=== PATIENT | male | born 1960 | race Caucasian/White ===

== ENCOUNTER 2022-05-12 19:11 | Emergency (ER) | payer BC, SELFPAY ==
--- NOTE | ~2022-05-12 | XR_ITS ---
EXAMINATION: XR hand LT min 3V INDICATION: Left hand pain TECHNIQUE: Three views of the left hand are obtained. COMPARISON: None available FINDINGS: Bone alignment is normal. There is no fracture. There are tuft soft tissue lacerations of t he second and third fingers. There is moderate osteoarthritis at the first carpometacarpal joint and mild osteoarthritis of multiple interphalangeal joints. No radiopaque foreign body is identified. IMPRESSION: 1. Subtle soft tissue lacerations of the second and third fingers without underlying osseous abnormal ity. Reviewed, dictated and finalized at location F. IMPRESSION: 1. Subtle soft tissue lacerations of the second and third fingers without under lying osseous abnormality.
[2022-05-12 19:16] VITALS: BP 132/79; PULSE 69; RESP 16; TEMP 36.6; O2SAT 98
--- NOTE | 2022-05-12 20:36 | ED.WOUNDLAC ---
HPI - Wound/Laceration General Chief Complaint: Wound/Laceration <Zenobia Hoang PA-C - Last Filed: 05/13/22 01:10> Stated Complaint: Laceration left hand <MELISSA Quintanilla Last Filed: 05/13/22 01:10> Time Seen by Provider: 05/12/22 20:32 <MELISSA Quintanilla Last Filed: 05/13/22 01:10> Source: patient <MELISSA Quintanilla Last Filed: 05/13/22 01:10> Mode of arrival: ambulatory <Zenobia Hoang PA-C - Last Filed: 05/13/22 01:10> Limitations: no limitations <Zenobia Hoang PA-C - Last Filed: 05/13/22 01:10> History of Present Illness HPI narrative: Patient is a 61 y/o male who presents to the ED with c/o lacerations to his L 2nd and 3rd digits. Reports he was working with a circular saw today when his fingers got too close to the PVC board he was cutting. He sustained lacerations to the pads of his left second and third digits. No other injuries. Bleeding controlled by the time of my evaluation. Patient's tetanus status up-to-date. No numbness, tingling. <Zenobia Hoang PA-C - Last Filed: 05/13/22 01:10> Review of Systems Review of Systems: CONSTITUTIONAL: Denies fever, chills, or sweats. SKIN: Reports lacerations to L 2nd/3rd digits. MUSCULOSKELETAL: Denies joint pain. NEUROLOGIC: Denies tingling, numbness, or weakness. <Zenobia Hoang PA-C - Last Filed: 05/13/22 01:10> All systems reviewed & are unremarkable except as noted in HPI and below <Zenobia Hoang PA-C - Last Filed: 05/13/22 01:10> PMFSH Past Medical History Medical History: Medical History BPH (benign prostatic hyperplasia) HTN (hypertension) <Zenobia Hoang PA-C - Last Filed: 05/13/22 01:10> Surgical History Surgical History: Surgical History No pertinent past surgical history <Zenobia Hoang PA-C - Last Filed: 05/13/22 01:10> Social History Social History: Social History Smoking status: Never smoker Alcohol intake: current <Zenobia Hoang PA-C - Last Filed: 05/13/22 01:10> Exam Narrative: GENERAL: Well appearing, well-nourished, non-toxic, in no acute distress. HEAD: Normocephalic, atraumatic. NECK: Supple. No adenopathy, no masses. RESPIRATORY: Airway patent, respirations nonlabored. Clear to auscultation bilaterally, no rales, rhonchi, wheezing. CARDIOVASCULAR: Regular rate and rhythm without murmurs, rubs, or gallops. Radial pulses 2+ and equal bilaterally. MUSCULOSKELETAL: Moves all extremities. Strength/ROM intact without gross deformities. Sensation intact. Full ROM of L fingers. SKIN: Warm, dry, normal color. No rashes. 1cm linear laceration to L 2nd digit finger pad. Several small lacerations to L 3rd digit finger pad with skin in middle of lacerations somewhat mangled and jagged. No active bleeding. NEURO: A&O X3. Speech clear. Cranial nerves II-XII grossly intact. Steady gait. No ataxic movements. PSYCHIATRIC: Appropriate mood and affect. Normal interaction. <Zenobia Hoang PA-C - Last Filed: 05/13/22 01:10> Course INTENSIVE CARE AMBULANCE PARAMEDIC/PA Physician Supervision For this patient encounter, I reviewed the INTENSIVE CARE AMBULANCE PARAMEDIC or PA documentation, treatment plan, and medical decision making. I was available for consultation as needed. <Radha Shankar MD - Last Filed: 05/25/22 12:34> Vital Signs Vital signs: Vital Signs Temperature 97.8 F 05/12/22 19:16 Pulse Rate 69 05/12/22 19:16 Respiratory Rate 16 05/12/22 19:16 Blood Pressure 132/79 05/12/22 19:16 Pulse Oximetry 98 05/12/22 19:16 Oxygen Delivery Room Air 05/12/22 19:16 Temperature 97.8 F 05/12/22 19:16 Pulse Rate 78 05/12/22 23:24 Respiratory Rate 16 05/12/22 23:24 Blood Pressure 140/78 05/12/22 23:24 Pulse Oximetry 99 10/2
[2022-05-12] MEDS: LIDOCAINE HCL 1% PF 30 ML VIAL 5 ML INFILTRATE (21:39)
[2022-05-12 23:24] VITALS: BP 140/78; PULSE 78; RESP 16; O2SAT 99
== END 2022-05-12 23:25 | disposition home or self-care (01) ==
PROVIDERS: Emergency Provider Emergency Medicine; PCP Family Medicine Sports Medicine
DX: S61.211A Laceration without foreign body of left index finger without damage to nail, initial encounter (principal); S61.213A Laceration without foreign body of left middle finger without damage to nail, initial encounter; N40.0 Benign prostatic hyperplasia without lower urinary tract symptoms; I10 Essential (primary) hypertension; W31.2XXA Contact with powered woodworking and forming machines, initial encounter
CPT/HCPCS: 12002; 73130; 99283

== ENCOUNTER 2022-09-19 08:15 | Outpatient (CLI) | payer BC, SELFPAY ==
--- NOTE | 2022-09-19 08:23 | ECG_ITS ---
Measurements Intervals Elmer Rate: 49 P: 13 WA: 156 QRS: -28 QRSD: 96 T: -20 QT: 412 QTc: 375 Interpretive Statements SINUS BRADYCARDIA LEFT VENTRICULAR HYPERTROPHY BORDERLINE R WAVE PROGRESSION, ANTERIOR LEADS BORDERLINE ST-T WAVE ABNORMALITY- INFERIOR LEADS BASELINE ARTIFACT- I, II, AVR BORDERLINE ECG NO PREVIOUS ECG AVAILABLE FOR COMPARISON Electronically Signed On 09-19-2022 9:48:47 BURNISHING MACHINE OPERATOR by Owen Gill D.O.
== END 2022-09-19 08:16 | disposition home or self-care (01) ==
PROVIDERS: PCP Family Medicine Sports Medicine; Visit Provider Urology
DX: Z01.818 Encounter for other preprocedural examination (principal); I10 Essential (primary) hypertension; R94.31 Abnormal electrocardiogram [ECG] [EKG]
CPT/HCPCS: 93005

== ENCOUNTER 2022-09-26 14:30 | Observation (INO) | payer BC, SELFPAY ==
--- NOTE | 2022-09-18 08:03 | P.HP_ITS ---
H&P: HPI History of Present Illness Date/Time: 09/18/22 08:03 Chief Complaint: Difficulty urinating Narrative: pleasant 61-year-old with longstanding irritable and obstructive voiding symptoms into the, refractory to medical management with both alpha blockers and 5 alpha reductase inhibitors. He continues to complain of urinary frequency urgency with nocturia several times per night. He has a sense of hesitancy intermittency and incomplete emptying. Cystoscopy shows trilobar hyperplasia. After discussion of therapeutic options he has elected to proceed with TURP. He is aware the risk including, but not limited to, adverse cardiopulmonary events, hematuria, ongoing voiding symptoms. Review of Systems Review of Systems: All systems reviewed & are unremarkable except as noted in HPI and below PMFSH Past Medical History Medical History BPH (benign prostatic hyperplasia) HTN (hypertension) Surgical History Surgical History No pertinent past surgical history Social History Social History Smoking status: Never smoker Alcohol intake: current Exam Const: General: no acute distress Resp: Effort & Inspection: normal respiratory effort GI: Inspection: non-distended GI Palp: No abdominal tenderness and No Guarding due to palpation present (GI) Auscultation: normal bowel sounds Assessment and Plan Assessment and plan (1) BPH loc w urin obs/LUTS: Code(s): N40.1 - Benign prostatic hyperplasia with lower urinary tract symptoms Status: Acute Assessment and Plan: * TURP
[2022-09-18 13:31] VITALS: BMI 33.4
--- NOTE | 2022-09-18 13:50 | PC.NURSE ---
Report to the Outpatient Waiting Room, entrance under the green pavilion located off [facility], at time __11:00AM on date ___09/26/22____. Planned Procedure Time: _1:00PM . Time changes happen often and if your time is changed the preop area will call you the afternoon before. - You and your visitor will be asked to self-screen and do not enter if you have any COVID symptoms. - Only one visitor is requested with a max of two and NO children visitors are allowed at this time. - The patient visitor may be requested to leave or wait in car when not with patient due to distancing restrictions. - A mask is optional within the hospital at this time. Patients may have clear liquids (water, carbonated beverages, clear teas, apple juice) until 3 hours prior to surgery with a maximum of 20 ounces. - No food from midnight until time of surgery Take the following medications with a SIP of water the morning of surgery: NONE DO NOT STOP ANY OF YOUR OTHER PRESCRIPTION MEDICATIONS PRIOR TO SURGERY ?EXCEPT THE FOLLOWING Medications to discontinue per physician ____HOLD ALL VITAMINS/SUPPLEMENTS 3 DAYS PRE-OP Date to take last dose___09/22/22 Please no make-up, nail tajik, hairspray, perfume, deodorant, or body powder the day of surgery. No jewelry (including any body piercings) or valuables the day of surgery, leave them at home. Please take a shower or bath the night before, or the morning of, surgery with an antibacterial soap. Wear comfortable, loose fitting clothing. Children are encouraged to wear pajamas. - Jewelry must be removed prior to entering the operating room. Rings and piercings that are not removed may be cut off. - The hospital will not accept responsibility for valuables. - Please leave all valuables, including medications, at home the day of surgery. If you are going home after surgery, a licensed courtesy bus driver must drive you home. - NO public transportation without another adult if you receive anesthesia. - We recommend that an adult stay with you for 24 hours following discharge. - We also recommend that you do not drive, make important decision, drink alcoholic beverages, or take any drugs that were not prescribed by your health care provider for at least 24 hours after your discharge time. Follow any additional instructions given to you from your surgeon. If you or anyone in your household have experienced Covid symptoms in the past week, please notify your surgeon or the nurse liaison at the phone number below for possible testing. Telephone instructions given to __PATIENT and asked if any additional questions and then verbalized understanding. Patient advised to call surgeon office or pre surgery nurse liaison [phone] if any additional questions.
--- NOTE | 2022-09-25 10:05 | WPDANESEPPF ---
Anes - Initial Pre Proc Eval Procedure: Operation Date: 09/26/22 13:00 Proposed Procedures p Trans Urethral Resection Prostate - Harsh Nelson MD Date/Time: 09/25/22 10:05 Surgeon: Harsh Nelson MD Pre Op Diagnosis: bph Patient Data Age: 61 Gender: M Height: 1.88 m Weight: 118 kg Allergies Allergy/AdvReac Type Severity Reaction Status Date / Time No Known Allergies Allergy Verified 09/18/22 13:17 Home Medications Medication Instructions Recorded Confirmed Type biotin 5,000 mcg sublingual tablet See Rx Instructions .Route .COMPLEX 09/18/22 09/18/22 History finasteride 5 mg tablet 5 mg PO DAILY 09/18/22 09/18/22 History lisinopril 10 mg tablet 10 mg PO QAM 09/18/22 09/18/22 History magnesium glycinate 100 mg tablet 100 mg PO DAILY 09/18/22 09/18/22 History potassium 99 mg tablet 99 mg PO DAILY 09/18/22 09/18/22 History tamsulosin 0.4 mg capsule 0.4 mg PO DAILY 09/18/22 09/18/22 History Patient hx anesthesia problems: none Family hx anesthesia problems: none Results Review: All pre-operative results and documents have been reviewed as part of the pre-operative evaluation. [facility] Past Medical History Medical History (Updated 09/25/22 @ 10:06 by Wayne Groves MD) BPH (benign prostatic hyperplasia) HTN (hypertension) Obesity LINDSEY (obstructive sleep apnea) Surgical History Surgical History No pertinent past surgical history Social History Social History Smoking status: Never smoker Alcohol intake: current Drinks per week: 3 Substance use: never Living arrangements: with family Additional living arrangements comments: Spiritual care concerns: No Anes - Eval Final PreProcedure Day of Procedure 09/25/22 10:05 Patient weight: obese Heart: regular rate and rhythm Lungs: clear to auscultation and normal air movement Airway: Mallampati scale class II Neurological: alert and oriented Last oral intake: >/= 8 hours ASA classification: III Emergent: no Anesthetic plan: proceed Anesthesia type and monitoring: general LMA Results Review: All pre-operative results and documents have been reviewed as part of the pre-operative evaluation. Informed Consent: The patient's anesthetic plan and its attendant risks and benefits were discussed with the patient/family/POA. Questions were solicited and answers provided to the satisfaction of the patient/family/POA.
[2022-09-26] VITALS (11 sets, daily range): BP systolic 141–198; BP diastolic 70–103; PULSE 44–64; RESP 10–18; TEMP 35.5–36.6; O2SAT 98–100; BMI 32.7
--- NOTE | 2022-09-26 06:44 | WPDHPUPDATE1 ---
History and Physical Update Update Date/Time: 09/26/22 06:44 History and Physical has been reviewed, including an updated exam of the patient. There are NO changes in the patient's condition. Risks, benefits, and alternatives have been discussed and questions answered. Patient agrees to proceed with procedure.
[2022-09-26] MEDS: LACTATED RINGERS 1,000 ML 30 ML IV CONT (11:31)
[2022-09-26] MEDS: ceFAZolin 2 GM/D5W 50 ML 2 GM/50 ML BAG IVPB (12:18)
[2022-09-26] MEDS: LIDOCAINE HCL 2% GEL UROJET 10 ML PKG MUCOUS MEM (12:45)
--- NOTE | 2022-09-26 13:17 | P.OP_ITS ---
Procedure Note - Detailed Date of Procedure 09/26/22 Pre-op Diagnosis BPH Post-op Diagnosis Same Procedure Performed TURP Surgeon Harsh Nelson MD Anesthesia General Description of Procedure The patient was brought to the operative suite where he is prepped and draped in routine sterile fashion while in the dorsal lithotomy position after the uneventful induction of a general LMA anesthetic. A 27 [place] resectoscope sheath was placed into his bladder. He had no urethral strictures. The patient had trilobar hyperplasia with a moderate-large median lobe. The bladder itself was endoscopically normal, showing no mucosal hyperemia, intravesical neoplasm or foreign bodies. There was a single, orthotopic ureteral orifice bilaterally. These orifices were identified and preserved throughout the remainder of the procedure. Attention was first turned to resection of the median lobe. This resection was undertaken from the bladder neck to the verumontanum and carried out until the transverse fibers of the bladder neck were identified. The left lateral lobe was then resected starting at the 6 o'clock position, working counter clockwise to the 12 o'clock position. Again, resection was carried out from the bladder neck to the verumontanum until the capsular fibers of the prostate were identified. The right lateral lobe was resected in a similar fashion starting at the 6 o'clock position working clockwise to the 12 o'clock position and carried out until the capsular fibers of the prostate were identified. Apical tissue was then circumferentially resected. All chips were evacuated from the bladder using an [employer] evacuator. Hemostasis was obtained with electric cautery. The ureteral orifices were again inspected and found to be without injury. Estimated blood loss throughout this procedure was []cc. The patient was taken to recovery room having tolerated this well. Drains Yes Packing No Pathology Yes Complications No immediate complications Condition Stable
--- NOTE | 2022-09-26 14:40 | PC.NURSE ---
This patient, Cheikh Goff, was admitted to 3 [facility] Surg Room 315-01. Patient/family oriented to hospital policies and general routines including ID bracelet, bed and alarms, visiting hours, pain management, procedures, bathroom and other care routines, personal items, smoking policy, room service/diet, and visiting hours. Information on how to activate the Rapid Response Team has been discussed. Patient/Family are encouraged to report perceived risks to care and to ask questions if they do not understand what they are told or what they should do.
[2022-09-26] MEDS: DEXTROSE 5%/LACTATED RINGERS 1,000 ML 125 ML IV CONT (15:21)
[2022-09-26] MEDS: DOCUSATE SODIUM 100 MG CAPSULE PO (16:37)
[2022-09-26] MEDS: lisinopriL 10 MG TABLET PO (16:38)
[2022-09-26] MEDS: ceFAZolin 1 GM/NS 50 ML 1 GM/50 ML BAG IVPB (21:07)
[2022-09-27] MEDS: ceFAZolin 1 GM/NS 50 ML 1 GM/50 ML BAG IVPB (03:46)
[2022-09-27 06:42] VITALS: BP 130/73; PULSE 59; RESP 16; O2SAT 100
[2022-09-27 07:14] LABS: Hematocrit 38.8 % (42.0-52.0); Hemoglobin 13.2 g/dL (14.0-18.0)
[2022-09-27 07:17] LABS: Anion Gap 3 mmol/L (8-16); Blood Urea Nitrogen 16 mg/dL (9-20); Calcium 8.2 mg/dL (8.4-10.2); Carbon Dioxide 26 mmol/L (22-30); Chloride 107 mmol/L (98-107); Estimated CRCL calculation 94 ml/min; Estimated Glomerular Filt Rate > 60; Glucose 146 mg/dL (65-110); Potassium 3.8 mmol/L (3.4-5.0); Sodium 136 mmol/L (137-145)
--- NOTE | 2022-09-27 07:20 | WPDUROPN2 ---
Progress Note: A&P Assessment and Plan (1) BPH loc w urin obs/LUTS: Code(s): N40.1 - Benign prostatic hyperplasia with lower urinary tract symptoms Status: Acute Plan Doing well POD #1 Stop CBI now / voiding trial later this morning if urine remains clear Subjective Subjective Date/Time Seen: 09/27/22 07:20 Comfortable, urine clear Review of Systems Cardiovascular: Cardiovascular: Denies chest pain, Denies lightheadedness, Denies palpitations and Denies dyspnea Respiratory: Respiratory: Denies dyspnea Gastrointestinal: Gastrointestinal: Denies diarrhea, Denies nausea and Denies vomiting Genitourinary: Genitourinary: Denies hematuria and Denies dysuria Endocrine: Endocrine: Denies palpitations Exam Const: General: no acute distress Resp: Effort & Inspection: normal respiratory effort GI: Inspection: non-distended GI Palp: No abdominal tenderness and No Guarding due to palpation present (GI) Auscultation: normal bowel sounds Objective Data Vital Signs Vital Signs: Vital Signs - 24 hr 09/26/22 11:00 09/26/22 13:20 09/26/22 13:35 Temperature 97.3 F L 97.8 F Pulse Rate 55 L 56 L 47 L Respiratory Rate 12 10 L Blood Pressure 159/90 H 141/71 H 167/83 H Pulse Oximetry 99 100 100 Oxygen Delivery Room Air Simple Face Mask Simple Face Mask Oxygen Flow Rate 8 8 09/26/22 13:50 09/26/22 14:05 09/26/22 14:20 Temperature Pulse Rate 48 L 44 L 56 L Respiratory Rate 10 L 10 L 10 L Blood Pressure 160/88 H 142/95 H 160/82 H Pulse Oximetry 98 99 99 Oxygen Delivery Room Air Oxygen Flow Rate 09/26/22 15:25 09/26/22 14:50 09/26/22 15:05 Temperature 96 F L Pulse Rate 47 L 48 L Respiratory Rate 16 18 Blood Pressure 198/90 H 187/84 H Pulse Oximetry 100 100 Oxygen Delivery Room Air Oxygen Flow Rate 09/26/22 15:15 09/26/22 16:35 09/26/22 21:15 Temperature 96 F L 96.8 F L 97.6 F Pulse Rate 47 L 53 L 64 Respiratory Rate 16 16 16 Blood Pressure 183/103 H 177/94 H 148/70 H Pulse Oximetry 100 99 98 Oxygen Delivery Oxygen Flow Rate 09/26/22 20:00 09/27/22 06:42 Temperature Pulse Rate 59 L Respiratory Rate 16 Blood Pressure 130/73 Pulse Oximetry 100 Oxygen Delivery Room Air Oxygen Flow Rate Intake/Output Intake/Output: Intake & Output 09/24/22 09/25/22 09/26/22 09/27/22 23:59 23:59 23:59 23:59 Intake Total 1590 250 Output Total 6200 1350 Balance -4610 -1100 Meds/Results Medications: Active Medications Generic Name Dose Route Start Last Admin Trade Name Freq PRN Reason Stop Dose Admin Hydrocodone Bitart/Acetaminophen 1 tab 09/26/22 14:30 Hydrocodone/Acetaminophen (*Crx) 5-325 Mg Tablet PO Q4H PRN Pain Rated 1-6 Cephalexin HCl 500 mg 09/27/22 09:00 Cephalexin 500 Mg Capsule PO QID FRED Docusate Sodium 100 mg 09/26/22 17:00 09/26/22 16:37 Docusate Sodium 100 Mg Capsule PO 100 mg BID [facility] Administration Fentanyl Citrate 25 mcg 09/25/22 09:47 Fentanyl Citrate Inj (*Crx) 100 Mcg/2 Ml Vial IV PUSH Q2M PRN Pain Hyoscyamine 0.125 mg 09/26/22 14:30 Hyoscyamine Sulfate 0.125 Mg Tablet SUBLINGUAL Q6H PRN Bladder Spasm Lisinopril 10 mg 09/27/22 09:00 Lisinopril 10 Mg Tablet PO DAILY [facility] Magnesium Oxide 200 mg 09/27/22 09:00 Magnesium Oxide 200 Mg Tablet PO 10/27/22 08:59 DAILY [facility] Miscellaneous Information 0 each 09/26/22 00:01 Please Clarify Potassium Dose - We Carry 10 Or 20meq Tablets XX 10/26/22 00:00 CLARIFY [facility] Morphine Sulfate 2 mg 09/26/22 14:30 Morphine Sulfate (*Crx) 2 Mg/Ml Inj IV PUSH Q2H PRN Pain Rated 7-10 Naloxone HCl 0.1 mg 09/26/22 14:30 Naloxone Hcl 0.4 Mg/Ml Vial IV PUSH Q2M PRN Opiate Reversal Non-Formulary Medication 99 mg 09/27/22 09:00 Potassium PO 10/27/22 08:59 DAILY [facility] Ondansetron HCl 4 mg 09/25/22 09:47 Ondansetron Inj 4 Mg/2 Ml Vial IV PU
[2022-09-27] MEDS: CEPHALEXIN 500 MG CAPSULE PO (08:35)
[2022-09-27] MEDS: MAGNESIUM OXIDE 200 MG TABLET PO (08:35)
[2022-09-27] MEDS: lisinopriL 10 MG TABLET PO (08:35)
[2022-09-27] MEDS: DOCUSATE SODIUM 100 MG CAPSULE PO (08:35)
--- NOTE | 2022-09-27 08:46 | PC.NURSE ---
this nurse got a physician to nurse communication to pull aviles at 0830 if urine is clear/pink. This nurse noticed urine is tomato red but clear. This nurse called urology at 0840 to ask if it is still ok to pull. Spoke to hcp and was told to pull aviles because aviles is clear with no clots. this nurse was told by hcp to educate and push fluids to pt. aviles was pulled at 0845. will monitor
--- NOTE | 2022-09-27 09:56 | WPDANESPN ---
Anes - Prog Note Post-Op Date/Time: 09/27/22 09:56 Cardiovascular status: normal Respiratory status: normal Airway patency: baseline Mental status: baseline Post-Op hydration status: normal Vital Signs: Last Vital Signs Temp 36.4 C 09/26/22 21:15 Pulse 59 L 09/27/22 06:42 Resp 16 09/27/22 06:42 BP 130/73 09/27/22 06:42 Pulse Ox 100 09/27/22 06:42 O2 Del Method Room Air 09/26/22 20:00 O2 Flow Rate 8 09/26/22 13:35 Pain Score (VAS): 0 I/O: Intake & Output 09/26/22 09/27/22 09/27/22 23:59 07:59 15:59 Intake Total 540 250 Output Total 650 1350 Balance -110 -1100 Laboratory Tests 09/27/22 06:49 09/27/22 06:49 09/27/22 09/27/22 06:49 06:49 Hgb 13.2 L Hct 38.8 L Sodium 136 L Potassium 3.8 Chloride 107 Carbon Dioxide 26 Anion Gap 3 L BUN 16 Creatinine 1.00 Estim Creat Clear Calc 94 Estimated GFR > 60 Glucose 146 H Calcium 8.2 L Post-procedural complaints: none Patient Feedback: Patient satisfied with anesthetic care.
--- NOTE | 2022-09-27 16:10 | P.DS_ITS ---
DS: Admitting Diagnosis Discharge Date 09/27/22 Admitting Diagnosis BPH DS: Summary Hospital Course Hospital Course: This patient with longstanding prostatism refractory for medical management was admitted on the morning of his planned TURP. The procedure was undertaken on that same day in an uneventful fashion. His post-operative course was, likewise, uneventful. On the evening of the procedure he was tolerating a diet. On POD#1 his urine was clear on CBI. The urine remained clear and, therefore, the catheter was removed late morning. The patient was observed for several javy rs, until he demonstrated he could void effectively without significant hematuria. He was discharged with careful instruction on limiting physical activity x2 weeks and plans to f/ in 2-3 weeks. At discharge he was comfortable and tolerating a diet. Time Spent with Patient Time attestation: Total time spent providing and/or coordinating discharge services: DS: Data Data Completed and Pending Completed studies during hospitalization: Pending at discharge 09/26/22 12:39 Surgical [PTH] Routine Labs on day of discharge: Labs from last 24 hours 09/27/22 09/27/22 06:49 06:49 Hgb 13.2 L Hct 38.8 L Sodium 136 L Potassium 3.8 Chloride 107 Carbon Dioxide 26 Anion Gap 3 L BUN 16 Creatinine 1.00 Estim Creat Clear Calc 94 Estimated GFR > 60 Glucose 146 H Calcium 8.2 L Discharge Plan Discharge Attending physician on discharge: Harsh Nelson Discharging Clinician: Harsh Nelson Patient Disposition: Home, Self-Care Activity: other - see discharge instructions Diet: other - see discharge instructions Discharge Instructions: 1) Activity: No lifting/straining >15lbs. x2 weeks. 2) Diet: Resume normal pre-admission diet. 3) Follow-up: 2-3 weeks / call office for appointment ([phone]). h Patient Instructions: Antibiotic Form Stand Alone Forms: General Discharge Information Follow-up/Referrals: Harsh Nelson MD [Physician] - Discharge Medications: New hydrocodone-acetaminophen 5-325 mg tablet 1 - 2 tablet PO Q6H PRN (Reason: pain) Qty: 20 0RF cephalexin 500 mg capsule 500 mg PO Q8H Qty: 15 0RF docusate sodium [Colace] 100 mg capsule 100 mg PO BID Qty: 30 0RF Continued lisinopril 10 mg tablet 10 mg PO QAM potassium 99 mg Tablet 99 mg PO DAILY magnesium glycinate 100 mg Tablet 100 mg PO DAILY biotin 5,000 mcg Tablet, Sublingual See Rx Instructions .ROUTE .COMPLEX Rx Instructions: 5000 UNITS DAILY Discontinued tamsulosin 0.4 mg capsule 0.4 mg PO DAILY finasteride 5 mg tablet 5 mg PO DAILY Date of admission: 09/26/22 14:30 Primary Care Provider: Ryan,Yuliana Gale Admitting Provider: Harsh Nelson Attending physician on admission: Harsh Nelson Condition: Stable
== END 2022-09-27 13:55 | disposition home or self-care (01) ==
LOC: ANH3MEDSUR 14:41
PROVIDERS: Admitting Provider Urology; PCP Family Medicine Sports Medicine; Visit Provider Urology
PROC: 0VT08ZZ Resection of Prostate, Via Natural or Artificial Opening Endoscopic (ICD-10-PCS; CPT 52601; principal; 2022-09-26 13:00)
DX: N40.1 Benign prostatic hyperplasia with lower urinary tract symptoms (principal); R35.0 Frequency of micturition; R39.15 Urgency of urination; R35.1 Nocturia; I10 Essential (primary) hypertension; F10.90 Alcohol use, unspecified, uncomplicated; E66.9 Obesity, unspecified; Z68.32 Body mass index [BMI] 32.0-32.9, adult; G47.33 Obstructive sleep apnea (adult) (pediatric); Z79.899 Other long term (current) drug therapy
CPT/HCPCS: 52601; 36415; 80048; 85014; 85018; 88305; A9270; C1758; G0378; J0690; J1100; J2250; J2405; J2704; J3010; J7120; J7121

== ENCOUNTER 2024-07-09 01:30 | Day surgery (SDC) | payer OTHER, SELFPAY ==
[2024-06-28 14:02] VITALS: BMI 30.8
[2024-07-09 06:26] VITALS: BP 137/81; PULSE 55; RESP 18; TEMP 36.4; O2SAT 99
[2024-07-09] MEDS: LACTATED RINGERS 1,000 ML 150 ML IV CONT (06:38)
--- NOTE | 2024-07-09 07:26 | PM.IMHP ---
H&P: HPI History of Present Illness Date/Time: 07/09/24 07:26 Chief Complaint: Colonoscopy-occasional dysphagia Narrative: the patient complains of occasional sensation of blocking in the esophagus within drinks certain liquids especially cold ones. He denies dysphagia to solid food, unintentional weight loss, heartburn or vomiting. In addition, his last colonoscopy was 13 years ago, and comes today for screening. Review of Systems Review of Systems: All systems reviewed & are unremarkable except as noted in HPI and below PMFSH Past Medical History Medical History (Updated 07/09/24 @ 07:29 by Mike Izaguirre MD) LINDSEY (obstructive sleep apnea) Obesity HTN (hypertension) BPH (benign prostatic hyperplasia) Surgical History Surgical History No pertinent past surgical history Social History Social History Smoking status: Never smoker Alcohol intake: current Drinks per week: 4 Substance use: never Substance use type: does not use Lack of Transportation: No Lack of Food: Never True Current Housing: I Have Housing Concerned About Future Housing: No Difficulty Paying Gas/Electric Bills: No Difficulty Paying for Meds: No Currently Unemployed: No Education: Associate Degree Difficulty w/ Childcare or Family Care: No Living arrangements: with family Additional living arrangements comments: Spiritual care concerns: No Meds Home Medications and Allergies Home Medications ?Medication ?Instructions ?Recorded ?Confirmed ?Type biotin 5,000 mcg sublingual tablet See Rx Instructions .Route .COMPLEX 09/18/22 07/09/24 History lisinopril 10 mg tablet 10 mg PO QAM 09/18/22 07/09/24 History magnesium glycinate 100 mg (as 100 mg PO DAILY 09/18/22 07/09/24 History glycinate) tablet potassium 99 mg tablet 99 mg PO DAILY 09/18/22 07/09/24 History Allergies Allergy/AdvReac Type Severity Reaction Status Date / Time No Known Allergies Allergy Verified 07/09/24 06:25 Vital Signs Vital Signs - 24 hr 07/09/24 06:26 Temperature 97.5 F L Pulse Rate 55 L Respiratory Rate 18 Blood Pressure 137/81 Pulse Oximetry 99 Oxygen Delivery Room Air Exam Const: General: cooperative and healthy appearing Resp: Effort & Inspection: normal respiratory effort and able to speak in complete sentences Auscultation: clear to auscultation bilaterally Cardio: Rate: regular rate Rhythm: regular rhythm GI: Inspection: normal to inspection GI Palp: No No hepatosplenomegaly present Auscultation: normal bowel sounds Rectal Exam: deferred Skin: General skin exam: normal color Psych: Appearance: grossly normal Mental Status: mental status grossly normal Assessment and Plan Assessment and plan (1) Dysphagia: Code(s): R13.10 - Dysphagia, unspecified Status: Acute Assessment and Plan: The patient is deemed a good candidate for the procedures. Consent signed. Will proceed. (2) Encounter for screening colonoscopy: Code(s): Z12.11 - Encounter for screening for malignant neoplasm of colon Status: Acute
[2024-07-09 07:51] VITALS: BP 122/72; PULSE 54; RESP 24; O2SAT 98
--- NOTE | 2024-07-09 07:53 | SUR.OPER ---
EGD: start 731, end 735 Colonoscopy: start 739, end 749
[2024-07-09 08:01] VITALS: BP 118/75; PULSE 50; RESP 17; O2SAT 100
[2024-07-09 08:11] VITALS: BP 135/76; PULSE 52; RESP 16; O2SAT 100
== END 2024-07-09 08:53 | disposition home or self-care (01) ==
PROVIDERS: PCP Student in an Organized Health Care Education/Training Program; Referring Provider Student in an Organized Health Care Education/Training Program; Visit Provider Internal Medicine Gastroenterology
PROC: 0DJ08ZZ Inspection of Upper Intestinal Tract, Via Natural or Artificial Opening Endoscopic (ICD-10-PCS; CPT 43235; principal; 2024-07-09 07:30)
DX: Z12.11 Encounter for screening for malignant neoplasm of colon (principal); K64.0 First degree hemorrhoids; R13.10 Dysphagia, unspecified
CPT/HCPCS: 45378; 43239; 88305; J2003; J2704; J7120